=== PATIENT | male | born 1970 | race Hispanic/Latino ===

== ENCOUNTER 2020-02-15 10:12 | Emergency (ER) | payer SELFPAY ==
[2020-02-15] MEDS ORDERED: Boostrix 0.5 ML (Tdap) VIAL ONE (11:08)
== END 2020-02-15 11:19 | disposition home or self-care (01) ==
LOC: BURERS 10:12
DX: S01.512A Laceration without foreign body of oral cavity, initial encounter (principal); S39.012A Strain of muscle, fascia and tendon of lower back, initial encounter; S00.531A Contusion of lip, initial encounter; I10 Essential (primary) hypertension; E11.9 Type 2 diabetes mellitus without complications; W55.22XA Struck by cow, initial encounter
CPT/HCPCS: 90471; 90715